=== PATIENT | female | born 1985 | race Two or more races ===

== ENCOUNTER 2024-06-07 01:57 | Emergency (ER) | payer MEDICAID, SELFPAY ==
[2024-06-07 02:12] VITALS: BP 143/68; PULSE 73; RESP 18; TEMP 36.8; O2SAT 99; BMI 48.2
--- NOTE | 2024-06-07 02:25 | PD.EDADULT ---
ED General RME/HPI General Chief complaint: Abdominal Pain Stated complaint: ABD PAIN Time Seen by Provider: 06/07/24 02:20 Arrival date/time: 06/07/24 01:57 RME / HPI RME / HPI narrative: This section includes all my notes and documentations, including HPI, PE, and ED course. Alirio Sosa MD HPI: 38yo female with no significant past medical or surgical history presents to the ED for a chief complaint of epigastric and RUQ pain x 3 hours. Patient states the pain radiates to her upper back. She reports associated nausea and vomiting. She denies any diarrhea, fever, chills or any other associated symptoms. Denies any tobacco use. No other complaints reported. ROS: Respiratory: negative except as documented in HPI. Gastrointestinal: negative except as documented in HPI. Genitourinary: negative except as documented in HPI. Musculoskeletal: negative except as documented in HPI. Skin: negative except as documented in HPI. Neurological: negative except as documented in HPI. Physical Exam: General: Alert and oriented. In obvious pain. Eyes: Conjunctivae and lids clear. ENT: No nasal congestion. Neck: Supple. Heart: RRR. Lungs: No respiratory distress. Good air movement. No rhonchi, wheezing, rales. Abdomen: Soft and epigastric and RUQ tenderness. Normal bowel sounds. No distension. No rebound or guarding. Back: No CVA tenderness. Legs: No clubbing, cyanosis, edema. Skin: Warm and dry. Neuro: Alert and oriented X 3. I reviewed all diagnostic test results. My review of the abdominal CT report is cholelithiasis. Blood tests and urine tests are unremarkable. At this point, diagnoses include cholelithiasis. Treatment here included Zofran and famotidine and Tylenol #3. Significant improvement noted subjectively and objectively. Recommended a trial of outpatient treatment. Based on my best medical judgment, made decision no further evaluation or treatment indicated at this time. Patient understands and agrees to the discharge instructions customized and printed, see below. Discharge Instructions from Dr. Sosa: 1. After evaluation, your symptoms are due to gallstones.? You need gallbladder to help digest fatty foods. 2. So to prevent future attacks, avoid all fatty and oily and greasy and buttery and dairy foods.? This usually means take out and fast food restaurants. 3. Zofran for nausea/vomiting.? Tylenol codeine for severe pain.? 4. See a private doctor on 06/09/2024. Ask for help seeing a general surgeon for possible surgery and gallbladder ultrasound. 5. Seek immediate medical care with intolerable pain, fever, or with any concerns. Related Data Home Medications ?Medication ?Instructions ?Recorded ?Confirmed ferrous sulfate 325 mg (65 mg 325 mg PO TID 09/19/18 09/19/18 iron) tablet (iron) vit no.95-ferrous 1 tab PO QDAY 09/19/18 09/19/18 fumarate 28 mg-folic acid 800 mcg tablet () Previous Rx's ?Medication ?Instructions ?Recorded acetaminophen 300 mg-codeine 30 mg 2 tab PO TID PRN pain #20 tabs 06/07/24 tablet ondansetron 4 mg disintegrating 4 mg PO TID PRN nausea and 06/07/24 tablet vomiting 5 days #10 tabs Allergies Allergy/AdvReac Type Severity Reaction Status Date / Time No Known Allergies Allergy Verified 06/07/24 02:01 Review of Systems Review of Systems Systems Reviewed: All systems reviewed, normal except as documented Past Medical History Past Medical History NEUROLOGIC: Negative Neurological Disorders or Seizures CARDIAC: Negative Cardiac Disorders or Congestive Heart Failure RESPIRATORY: Negative Chronic Obstructive Pulmonary Disease (COPD) GASTROINTESTINAL: Negative Gastrointestinal Disorders GENITOURINARY: Negative Genitourinary Disorders or Renal Disease REPRODUCTIVE: Negative Breast Cancer MUSCULOSKELETAL: Negative Musculoskeletal Disorders ENDOCRINE: Negative Endocrine Disorders, Diabetes Mellitus Type 1 or Diabetes Mellitus Type 2 HEMATOLOGIC: Negative Blood Disorders OTHER HISTORY: Negative Autoimmune Disease, Blood Transfusions, Anesthesia Reactions, Human Immunodeficiency Virus (HIV), Chicken Pox, Measles, Mumps, Rubella ([place] Measles), Pertussis, Clostridium Difficile or Breast Cancer Family History FAMILY HISTORY: Negative Family Psychiatric Problems, Family Respiratory Disorders, Family Cardiac Disorders, Family Gastrointestinal Problems, Family Cancer or Family Surgery Surgical History SURGICAL: Positive Section (X2) Social History SMOKING STATUS: Never smoker ED Exam Narrative Physical exam: As noted in HPI. Course Quality Measures none Orders Category Date Time Status CT abdomen pelvis wo con Stat Exams 06/07/24 02:27 Taken Amylase Stat Lab 06/07/24 02:58 Completed CBC Stat Lab 06/07/24 02:58 Completed CMP [Comprehensive Metabolic Panel] Stat Lab 06/07/24 02:58 Completed HCG Qualitative,Urine Stat Lab 06/07/24 03:00 Completed Lipase Stat Lab 06/07/24 02:58 Completed Magnesium Stat Lab 06/07/24 02:58 Completed UA [Urinalysis] Stat Lab 06/07/24 03:00 Completed ACETAMINOPHEN w/COD 300-30 [Tylenol w/Cod #3] Med 06/07/24 02:26 Discontinued 2 tab PO X1 ONE Famotidine [Pepcid] Med 06/07/24 02:26 Discontinued 40 mg PO X1 ONE Ondansetron Odt [Zofran Odt] Med 06/07/24 02:26 Discontinued 4 mg PO X1 ONE Vital Signs Vital signs: Vital Signs Temperature 98.3 F 06/07/24 02:12 Pulse Rate 73 06/07/24 02:12 Respiratory Rate 18 06/07/24 02:12 Blood Pressure 143/68 H 06/07/24 02:12 Pulse Oximetry (%) 99 06/07/24 02:12 Oxygen Delivery Method Room Air 06/07/24 02:12 Pulse ox is 99% on room air, which is normal according to my interpretation. [facility] Patient data External records reviewed:: [facility] previous records (Per chart review, patient has no previous ED visits.) Clinical information provided by:: patient Social determinants that could affect healthcare access:: none Patient has the following chronic illnesses:: none How is presenting disease/condition affected by chronic disease/condition?: no chronic disease Evaluation data The following diagnostics were reviewed and interpreted by me:: lab results and radiology exam(s) Lab and/or radiology exams considered but not ordered:: none Interpretation Summary: Telerad Preliminary Report Draft Patient: [facility]. Record#: [id number] Birthdate: 1985 Age/Sex: 38 / F Location: [facility] Attending Dr: Ordering Physician: Date of Service: Procedure(s): Accession Number(s): cc: ~ CT scan of the abdomen and pelvis without intravenous contrast (axial sections with sagittal and coronal reformats) June 07, 2024 0410 hours Clinical History: Upper abd pain Findings: The lung bases are clear. There are multiple calcified calculi in the body of the gallbladder, with borderline wall thickening, mucosal enhancement and pericholecystic fat stranding. The liver, pancreas, spleen, kidneys and adrenals are unremarkable on this noncontrast study. No evidence of bowel obstruction. The appendix is within normal limits (coronal images 110-121/216). There are multiple prominent mesenteric and retroperitoneal lymph nodes, the largest measuring 1 cm. The urinary bladder is unremarkable. There is no free fluid or free air. The uterus and adnexa are unremarkable. The osseous structures are unremarkable. Impression: Acute cholecystitis cannot be excluded. Recommend further evaluation with sonography, if clinically indicated. Report Electronically Signed By: Silvio Ordaz 06/07/2024 5:17:14 AM [EST] Medications Medications considered but not ordered:: none Medication administrations:: Medication Administration History Discontinued Medications Acetaminophen/Codeine Phosphate (Acetaminophen W/Cod 300-30 Tablet) 2 tab PO X1 ONE Stop: 06/07/24 02:27 Last Admin: 06/07/24 02:50 Dose: 2 tab Documented By: URVASHI Famotidine (Famotidine 20 Mg Tablet) 40 mg PO X1 ONE Stop: 06/07/24 02:27 Last Admin: 06/07/24 02:51 Dose: 40 mg Documented By: Admin: 06/07/24 02:50 Dose: 40 mg Documented By: URVASHI Ondansetron HCl (Ondansetron Odt 4 Mg Tabrap) 4 mg PO X1 ONE; Protocol Stop: 06/07/24 02:27 Last Admin: 06/07/24 02:49 Dose: 4 mg Documented By: URVASHI see above Consultations Consultation(s) initiated? (list below): No Diagnosis Differential Diagnosis ED Complaint MDM: cholecystitis, cholelithiasis, appendicitis, pancreatitis Most likely diagnosis given after review of the tests above:: see below Admission Indicated Admission indicated?: not indicated Explain why admission is indicated or not indicated:: Admission criteria not met. Admission Request Was there a request for admission?: No Disposition Plan Disposition Plan: Discharge Discharge Attestation Discharge Attestation: The patient and all family members were given an opportunity to ask questions and understood the discharge instructions. Discharge instructions specifically effects, indications for sooner follow up or return to the emergency department, and the expected course of current diagnosis. Patient condition: Stable Medical Decision Making Differential Diagnosis Differential Diagnosis: cholecystitis, cholelithiasis, appendicitis, pancreatitis Lab Data 06/07/24 02:58 06/07/24 02:58 Labs: Lab Results 06/07/24 06/07/24 Range/Units 02:58 03:00 WBC 10.0 (3.6-11.0) Thou/mm3 RBC 4.87 (4.00-5.20) Miln/mm3 Hgb 12.6 (12.0-16.0) g/dL Hct 39.0 (36.0-46.0) % MCV 80 (80-100) fL MCH 25.9 (25.0-35.0) pg MCHC 32.3 (31.0-37.0) g/dl RDW Std Deviation 39.9 (36.4-46.3) fL Plt Count 267 (140-440) Thou/mm3 Neut % (Auto) 83 H (37-80) % Lymph % (Auto) 11 (10-50) % [place] % (Auto) 5 (0-12) % Eos % (Auto) 0 (0-10) % Baso % (Auto) 0 (0-2.5) % Neut # (Auto) 8.4 H (1.8-7.7) Thou/mm3 Lymph # (Auto) 1.1 (1.0-4.8) Thou/mm3 [place] # (Auto) 0.5 (0.0-0.8) Thou/mm3 Eos # (Auto) 0.0 (0.0-0.5) Thou/mm3 Baso # (Auto) 0.0 (0.0-0.2) Thou/mm3 Immature Gran # (Auto) 0.02 H (0.00-0.00) Thou/mm3 Absolute Nucleated RBC 0.00 (0.00-0.00) Thou/mm3 Immature Gran % 0 (0-0) % Nucleated RBC % 0 (0) /100 WBC Sodium 135 L (136-145) mMol/L Potassium 4.3 (3.4-5.1) mMol/L Chloride 101 (98-107) mMol/L Carbon Dioxide 30.4 (20.0-31.0) mMol/L Anion Gap 4 L (7-16) BUN 20 (9-23) mg/dL Creatinine 0.8 (0.6-1.3) mg/dL Estim Creat Clear Calc 100.0 (>60) mL/min eGFR > 60 (60 - ) See Note BUN/Creatinine Ratio 25 H (12-20) Ratio Glucose 114 H (74-106) mg/dL Calculated Osmolality 273 L (275-295) Calcium 10.0 (8.3-10.6) mg/dL Corrected Calcium 10.0 (8.5-10.1) mg/dL Magnesium 2.0 (1.6-2.6) mg/dL Total Bilirubin 0.3 (0.3-1.2) mg/dL AST 73 H (0-34) U/L ALT 45 (10-49) U/L Alkaline Phosphatase 108 (46-116) U/L Total Protein 7.4 (5.7-8.2) gm/dL Albumin 4.8 (3.5-5.0) gm/dL Globulin 2.6 (2.3-3.5) gm/dL Albumin/Globulin Ratio 1.8 (1.2-2.2) Amylase 65 (30-118) U/L Lipase 52 (12-53) U/L Ur Collection Type Clean Catch Urine Color Yellow (Lt Yel-Yel) Urine Clarity Turbid A (Clear/Hazy) Urine pH 5.5 (5.0-7.0) Ur Specific [place] 1.038 H (1.001-1.035) Urine Protein 1+ A (Neg - Trace) Urine Glucose (UA) Negative (Negative) Urine Ketones Trace (Negative) Urine Blood 1+ A (Negative) Urine Nitrite Negative (Negative) Urine Bilirubin 1+ A (Negative) Urine Urobilinogen (Auto) 4.0 (0.0-1.0) mg/dL Ur Leukocyte Esterase Negative (Negative) Urine RBC 6 H (0-3) /hpf Urine WBC 0 (0-5) /hpf Ur Squamous Epith Cells 11 H (0-5) /hpf Urine Bacteria Rare (None) Hyaline Casts < 1 (0-1) /hpf Urine HCG, Qual Negative Discharge Plan Plan Patient Disposition: HOME (Self Care) Prescriptions/Referrals Prescriptions/Med Rec: New acetaminophen-codeine 300-30 mg tablet 2 tab PO TID MDD 6 PRN (Reason: pain) Qty: 20 0RF ondansetron 4 mg tablet,disintegrating 4 mg PO TID PRN (Reason: nausea and vomiting) 5 Days Qty: 10 0RF No Action ferrous sulfate [iron] 325 mg (65 mg iron) Tablet 325 mg PO TID PNV cmb#95-ferrous fumarate-FA [] 28 mg iron- 800 mcg Tablet 1 tab PO QDAY Referrals: John Whitaker MD [Primary Care Provider] - In 1 week Problem List Clinical Impression: Gallstones Patient/Caregiver Discharge Instructions Discharge Activity: activity as tolerated Education Materials: Treating Gallstones Additional Instructions: Discharge Instructions from Dr. Sosa: 1. After evaluation, your symptoms are due to gallstones.? You need gallbladder to help digest fatty foods. 2. So to prevent future attacks, avoid all fatty and oily and greasy and buttery and dairy foods.? This usually means take out and fast food restaurants. 3. Zofran for nausea/vomiting.? Tylenol codeine for severe pain.? 4. See a private doctor on 06/09/2024. Ask for help seeing a general surgeon for possible surgery and gallbladder ultrasound. 5. Seek immediate medical care with intolerable pain, fever, or with any concerns. Print Language: Wolof Stand Alone Forms: Poppy Award Info., Patient Portal Info Letter
--- NOTE | 2024-06-07 02:27 | XR_ITS ---
Examination: CT abdomen and pelvis without contrast. Coronal 3-D reconstructions. Sagittal 2-D reconstructions. Date and time of exam:June 07, 2024 0410 hrs. Indications: Upper abdominal pain beginning today CTDI: vol (mGy): 17.1 DLP: (mGycm): 937 Technique: Axial images of the abdomen have been obtained, 3 mm slice thickness Intravenous contrast material has not been administered. Low dose protocols were performed. One or more of the following dose reduction techniques were used; automated exposure control, adjustment of the mA and/or KV according to patient size, use of iterative reconstruction technique. Findings: No focal liver or splenic lesions Cholelithiasis, gallbladder wall appears at least mildly thickened Spleen is not enlarged No pancreatic or adrenal mass No renal or ureteral calculi Aorta normal size Small fat-containing inguinal hernia Normal appendix No bowel obstruction No diverticulitis Anteverted uterus No adnexal mass Urinary bladder intact Mild diffuse lumbar disc narrowing Moderate narrowing hip joints Impression: Cholelithiasis, recommend gallbladder sonography follow-up to exclude cholecystitis
[2024-06-07] MEDS: ONDANSETRON ODT 4 MG TABRAP PO (02:49)
[2024-06-07] MEDS: ACETAMINOPHEN w/COD 300-30 TABLET 2 TAB PO (02:50)
[2024-06-07] MEDS: FAMOTIDINE 20 MG TABLET 40 MG PO ×2 (02:50→02:51)
[2024-06-07 03:07] LABS: Basophils % (Auto) 0 % (0-2.5); Eosinophils % (Auto) 0 % (0-10); Hemoglobin 12.6 g/dL (12.0-16.0); Immature Granulocytes % (Auto) 0 % (0-0); Immature Granulocytes Auto 0.02 Thou/mm3 (0.00-0.00); Lymphocytes # (Auto) 1.1 Thou/mm3 (1.0-4.8); Lymphocytes % (Auto) 11 % (10-50); Mean Corpuscular HGB Conc 32.3 g/dl (31.0-37.0); Mean Corpuscular Hemoglobin 25.9 pg (25.0-35.0); Mean Corpuscular Volume 80 fL (80-100); Monocytes # (Auto) 0.5 Thou/mm3 (0.0-0.8); Monocytes % (Auto) 5 % (0-12); Neutrophils # (Auto) 8.4 Thou/mm3 (1.8-7.7); Neutrophils % (Auto) 83 % (37-80); Nucleated Red Blood Cell % 0 /100 WBC (0); Platelet Count 267 Thou/mm3 (140-440); RDW Standard Deviation 39.9 fL (36.4-46.3); Red Blood Count 4.87 Miln/mm3 (4.00-5.20)
[2024-06-07 03:25] LABS: Alanine Aminotransferase 45 U/L (10-49); Albumin, Serum 4.8 gm/dL (3.5-5.0); Albumin/Globulin Ratio 1.8 (1.2-2.2); Alkaline Phosphatase 108 U/L (46-116); Amylase 65 U/L (30-118); Anion Gap 4 (7-16); Aspartate Amino Transferase 73 U/L (0-34); BUN/Creatinine Ratio 25 Ratio (12-20); Bilirubin,Total 0.3 mg/dL (0.3-1.2); Blood Urea Nitrogen 20 mg/dL (9-23); Carbon Dioxide 30.4 mMol/L (20.0-31.0); Chloride 101 mMol/L (98-107); Creatinine (Component) 0.8 mg/dL (0.6-1.3); Globulin 2.6 gm/dL (2.3-3.5); Glucose 114 mg/dL (74-106); Lipase 52 U/L (12-53); Osmolality,Calculated 273 (275-295); Potassium 4.3 mMol/L (3.4-5.1); Sodium 135 mMol/L (136-145); Total Protein 7.4 gm/dL (5.7-8.2); eGFR > 60 See Note
[2024-06-07 03:33] LABS: Collection Type, Urine Clean Catch; WBC,Urine 0 /hpf (0-5)
[2024-06-07 03:40] LABS: HCG Qualitative,Urine Negative
[2024-06-07 03:44] LABS: Bacteria,Urine Rare; Bilirubin,Urine 1+ (Negative); Blood,Urine 1+ (Negative); Clarity,Urine Turbid (Clear/Hazy); Color,Urine Yellow (Lt Yel-Yel); Glucose, Urine Negative (Negative); Hyaline Casts,Urine < 1 /hpf (0-1); Ketones,Urine Trace (Negative); Leukocyte Esterase,Urine Negative (Negative); Nitrite,Urine Negative (Negative); PH,Urine 5.5 (5.0-7.0); Protein,Urine 1+ (Neg - Trace); RBC,Urine 6 /hpf (0-3); Specific Gravity,Urine 1.038 (1.001-1.035); Squamous Epithelial Cell,Urine 11 /hpf (0-5)
--- NOTE | 2024-06-07 05:18 | PRELIM_ITS ---
CT scan of the abdomen and pelvis without intravenous contrast (axial sections with sagittal and jeremy nal reformats) June 07, 2024 0410 hours Clinical History: Upper abd pain Findings:The lung bases are clear.There are multiple calcified calculi in the body of the gallbladder, with borderline wall t hickening, mucosal enhancement and pericholecystic fat stranding. The liver, pancreas, spleen, kidne ys and adrenals are unremarkable on this noncontrast study.No evidence of bowel obstruction. The appe ndix is within normal limits (coronal images 110-121/216). There are multiple prominent mesenteric an d retroperitoneal lymph nodes, the largest measuring 1 cm. The urinary bladder is unremarkable. There is no free fluid or free air.The uterus and adnexa are unremarkable. The osseous structures are unre markable.Impression:Acute cholecystitiscannot be excluded. Recommend further evaluation with sonograp hy, if clinically indicated. Report Electronically Signed By: Silvio Ordaz 06/07/2024 5:17:14 AM [EST]
[2024-06-07 05:38] VITALS: BP 138/77; PULSE 70; RESP 18; TEMP 36.7; O2SAT 97
== END 2024-06-07 05:38 | disposition home or self-care (01) ==
PROVIDERS: Emergency Provider Emergency Medicine; PCP Family Medicine
DX: K80.20 Calculus of gallbladder without cholecystitis without obstruction (principal)
CPT/HCPCS: 36415; 74176; 80053; 81001; 81025; 82150; 83690; 83735; 85025; 99284; Q0162; A9270

== ENCOUNTER 2024-08-21 09:50 | Day surgery (SDC) | payer MEDICAID, SELFPAY ==
[2024-08-20 07:23] VITALS: BMI 50.0
[2024-08-20 09:32] LABS: Basophils % (Auto) 1 % (0-2.5); Eosinophils % (Auto) 0 % (0-10); Hemoglobin 12.9 g/dL (12.0-16.0); Immature Granulocytes % (Auto) 0 % (0-0); Immature Granulocytes Auto 0.01 Thou/mm3 (0.00-0.00); Lymphocytes # (Auto) 1.2 Thou/mm3 (1.0-4.8); Lymphocytes % (Auto) 25 % (10-50); Mean Corpuscular HGB Conc 32.3 g/dl (31.0-37.0); Mean Corpuscular Volume 81 fL (80-100); Monocytes # (Auto) 0.4 Thou/mm3 (0.0-0.8); Monocytes % (Auto) 8 % (0-12); Neutrophils % (Auto) 66 % (37-80); Nucleated Red Blood Cell % 0 /100 WBC (0); Platelet Count 266 Thou/mm3 (140-440); Red Blood Count 4.97 Miln/mm3 (4.00-5.20); White Blood Count 4.6 Thou/mm3 (3.6-11.0)
[2024-08-20 09:43] LABS: Alanine Aminotransferase 15 U/L (10-49); Albumin, Serum 4.4 gm/dL (3.5-5.0); Albumin/Globulin Ratio 1.7 (1.2-2.2); Alkaline Phosphatase 86 U/L (46-116); Anion Gap 7 (7-16); Aspartate Amino Transferase 16 U/L (0-34); BUN/Creatinine Ratio 23 Ratio (12-20); Bilirubin,Total 0.3 mg/dL (0.3-1.2); Blood Urea Nitrogen 16 mg/dL (9-23); Calcium 9.2 mg/dL (8.3-10.6); Calcium (Corrected) 9.2 mg/dL (8.5-10.1); Carbon Dioxide 28.9 mMol/L (20.0-31.0); Chloride 105 mMol/L (98-107); Creatinine (Component) 0.7 mg/dL (0.6-1.3); Estimated Creatinine Clearance 115.8 mL/min (>60); Globulin 2.6 gm/dL (2.3-3.5); Glucose 92 mg/dL (74-106); Osmolality,Calculated 282 (275-295); Potassium 4.3 mMol/L (3.4-5.1); Sodium 141 mMol/L (136-145); eGFR > 60 See Note
[2024-08-20 10:00] LABS: HCG,Qualitative Serum Negative
--- NOTE | 2024-08-20 14:48 | SUR.PREOP ---
Pt notified to come in at 1100 for surgery tomorrow.
[2024-08-21] VITALS (10 sets, daily range): BP systolic 97–125; BP diastolic 57–73; PULSE 60–94; RESP 12–18; TEMP 36.1–36.3; O2SAT 95–100; BMI 49.6
--- NOTE | 2024-08-21 12:17 | ESOP_ITS ---
Date of Procedure 08/21/24 Pre Op Diagnosis Symptomatic cholelithiasis Post Op Diagnosis Cholelithiasis with cholecystitis Fatty liver Procedure Laparoscopic cholecystectomy Findings Moderately distended gallbladder with gallstones and chronic cholecystitis. Mildly enlarged liver, fatty in appearance Procedure Description Patient was brought into the operating room in supine position. After administration of general endotracheal anesthesia abdomen was prepped and draped in standard surgical manner. A Veress needle was inserted through the umbilicus and pneumoperitoneum was obtained up to 15 mmHg. The Veress needle was then removed, a 5 mm infraumbilical incision was made and the 5mm trocar was inserted. Laparoscopic camera was placed. Under direct visualization a laparoscopic camera a 10 mm trocar was placed in subxiphoid and two 5 mm trocars placed in right upper quadrant. Liver was mildly enlarged with fatty in appeara nce. The gallbladder was identified and was noted to be moderately distended with large gallstone and chronic cholecystitis. It was retracted cephalad and laterally. Dissection started near the infundibulum of gallbladder where cystic duct and gallbladder junction clearly identified. The cystic duct was circumferentially dissected off the peritoneum and surrounding inflammatory tissue. The critical view of safety was clearly demonstrated. Cystic duct was then divided between 2 endoclips proximally and one distally. The cystic artery was similarly dissected and divided. The gallbladder was then from the liver bed using electrocautery. The gallbladder was then placed inside an Endo Catch and removed from the abdomen utilizing subxiphoid trocar site. The area was copiously and thoroughly washed and irrigated, all the fluid was suctioned and the suction fluid returned clear. Hemostasis achieved using electrocautery. Endoclips noted be in place and intact without any bleeding or any leakage. Hemostasis was adequate and satisfactory. The subxiphoid trocar sites fascial defect was closed with 0 Vicryl using Endo Closure device. Instruments and trocars removed, pneumoperitoneum was evacuated and the incisions closed with 4-0 Monocryl in subcuticular fashion. Instrument needle and sponge counts were all reported to be correct X2. Patient tolerated the procedure well, was extubated, breathing spontaneously and without difficulty and was transferred to postanesthesia care in stable condition. Anesthesia GETA and local Pathology / specimen Other (Gallbladder and contents) Estimated Blood Loss 10 Condition Stable Disposition PACU Surgeon Melvina Cornelius MD Surgical Staff Operation Date: 08/21/24 13:15 <No data on this case meets the specified criteria>
--- NOTE | 2024-08-21 12:25 | SUR.PHASEI ---
pt arrived to pacu via gurney awake, alert, breathing unlabored, dressing to abdomen clean, dry, and intact, report form Vincent HAYDEN, Derrick HAYDEN, and Dr Price
[2024-08-21] MEDS: fentaNYL CIT INJ 50 mCg/ML AMP 2ML IV (12:58)
[2024-08-21] MEDS: ONDANSETRON INJ 2 MG/ML INJ 2 ML 4 MG IV (13:01)
--- NOTE | 2024-08-21 13:14 | SUR.PHASEII ---
report to Servando HAYDEN
--- NOTE | 2024-08-21 14:18 | SUR.PHASEII ---
pt awake and alert, breathing unlabored on room air. v/s stable. pt dressing to abd dermabond x4 cdi. pt able to ambulate to wheelchair with steady gait. d/c instructions given with in room using windshield installer Shanelle Reynolds68, all questions answered. pt d/c via wheelchair with all belongings.
== END 2024-08-21 14:18 | disposition home or self-care (01) ==
PROVIDERS: PCP Family Medicine; Referring Provider Surgery; Visit Provider Surgery
PROC: 0FT44ZZ Resection of Gallbladder, Percutaneous Endoscopic Approach (ICD-10-PCS; CPT 47562; principal; 2024-08-21 13:00)
DX: K80.10 Calculus of gallbladder with chronic cholecystitis without obstruction (principal); K76.0 Fatty (change of) liver, not elsewhere classified
CPT/HCPCS: 47562; 36415; 80053; 84703; 85025; A4217; A4649; J0131; J0694; J1100; J2405; J2704; J3010; J3490